=== PATIENT | female | born 1985 | race Caucasian/White ===

== ENCOUNTER 2016-06-27 13:07 | Emergency (ER) | payer OTHER ==
--- NOTE | ~2016-06-27 | CR181 ---
[facility] A Service of [facility] & [facility] RADIOLOGY TEXT RESULTS PATIENT: NAI BAUTISTA LOCATION: SED : 85 UNIT #: [id number] AGE: [address]: Davina Dawson SEX: F ORDER DR: [id number] [address] [address] [id number] E MR#: [id number] Acc #: [id number] NAME: NAI BAUTISTA : 1985 SEX: F STUDY DATE/TIME: 06/27/2016 13:49 UNIT: SED ROOM: STUDY DESCRIPTION: CR Lumbar Spine 2 or 3 Views Attending Physician: Davina Dawson Pa-C Ordering Physician: Davina Dawson Pa-C Primary Care Physician: Nia Singh M.D. MEDICAL IMAGING REPORT This report is preliminary unless electronic signature is present. EXAM Lumbar spine series HISTORY Low back pain, especially to the right of midline, beginning this morning. TECHNIQUE 3 views of the lumbar spine were obtained. FINDINGS There is an exaggerated lumbar lordosis. Disc space heights are preserved. No pars defects or destructive bone lesions are seen, and no degenerative changes are noted. IMPRESSION Exaggerated lumbar lordosis. Otherwise negative. Dictated by... Geovany Castañeda M.D. THIS IS AN ELECTRONICALLY VERIFIED REPORT Geovany Castañeda M.D. at 06/27/2016 6:17 PM DOMONIQUE/peri TD: 06/27/2016 15:41 JOB #: [id number] MEDICAL IMAGING REPORT Page 1 of 1
[~2016-06-27 13:07] MED LIST: ACYCLOVIR PO; ADVIL200 M2 PO; ALBUTEROL17 GM INH; AMBIEN PO; BENADRYL25 M3 PO; CELEXA PO; DARVOCET-N 1001 TAB PO; DELTASONE20 MG PO; FAMOTIDINE PO; FLEXERIL PO; FLEXERIL10 MG PO; KEFLEX500 MG PO; METROGEL-VAGINA70 GM VG; NO MEDICATIONS; ORUDIS75 M1 DOB; PEN-VEE K PO; PREDNISONE PO; PRENATAL MULTIV1 TA1 PO; SUBOXONE 8 MG-1 EAC1; VICODIN; VOLTAREN75 MG PO
== END 2016-06-27 15:06 | disposition home or self-care (01) ==
LOC: SED 13:07
DX: M54.5 Low back pain (principal); J45.909 Unspecified asthma, uncomplicated; F17.210 Nicotine dependence, cigarettes, uncomplicated
CPT/HCPCS: 72100; 96372; 99283; J1885

== ENCOUNTER → 2016-09-24 | Outpatient (CLI) | payer OTHER ==
--- NOTE | ~2016-09-24 | CR132 ---
[facility] A Service of [facility] & [facility] RADIOLOGY TEXT RESULTS PATIENT: NAI BAUTISTA LOCATION: [facility] : 85 UNIT #: [id number] AGE: [address]: ROBYN JACKSON SEX: F ORDER DR: [id number] [facility] [address] [place], [place] [address] [id number] O MR#: [id number] Acc #: [id number] NAME: NAI BAUTISTA : 1985 SEX: F STUDY DATE/TIME: 09/24/2016 18:03 UNIT: [facility] ROOM: STUDY DESCRIPTION: CR Forearm 2 View Lt Attending Physician: Robyn Jackson Aprn Referring Physician: Robyn Jackson Aprn Ordering Physician: Robyn Jackson Aprn Primary Care Physician: Kerri Smith M.D. MEDICAL IMAGING REPORT This report is preliminary unless electronic signature is present EXAM Left forearm, 09/24/2016, [facility]. HISTORY 30-year-old woman with bilateral forearm and bilateral hand pain. Symptoms x2 years. COMPARISON Right forearm. FINDINGS AP and lateral views of the left forearm demonstrate a normal radius and ulna. Mineralization is normal. Cortex is intact. I see no periosteal response. Soft tissues are normal. IMPRESSION Negative left forearm. Dictated by... Honorio Roy M.D. THIS IS AN ELECTRONICALLY VERIFIED REPORT Honorio Roy M.D. at 09/25/2016 1:54 PM Julio César TD: 09/25/2016 13:19 JOB #: [id number] MEDICAL IMAGING REPORT Page 1 of 1 COPY
--- NOTE | ~2016-09-24 | CR142 ---
[facility] A Service of [facility] & [facility] RADIOLOGY TEXT RESULTS PATIENT: NAI BAUTISTA LOCATION: [facility] : 85 UNIT #: [id number] AGE: [address]: ROBYN JACKSON SEX: F ORDER DR: [id number] [facility] [address] [place], [place] [address] [id number] O MR#: [id number] Acc #: [id number] NAME: NAI BAUTISTA : 1985 SEX: F STUDY DATE/TIME: 09/24/2016 17:57 UNIT: [facility] ROOM: STUDY DESCRIPTION: CR Hand Min 3 Views Rt Attending Physician: Robyn Jackson Aprn Referring Physician: Robyn Jackson Aprn Ordering Physician: Robyn Jackson Aprn Primary Care Physician: Kerri Smith M.D. MEDICAL IMAGING REPORT This report is preliminary unless electronic signature is present EXAM Right hand 09/24/2016 HISTORY Bilateral hand pain and forearm pain 2 years duration. FINDINGS 3 views of the right hand demonstrate normal mineralization with intact cortex. The small joints are preserved. There appears to be some soft tissue swelling involving proximal IP joints. There is an incidental tiny corner based chip fracture involving the lateral base of the proximal phalanx of the index finger. IMPRESSION 1. Mild soft tissue swelling or synovial prominence involving the proximal IP joints. No other small joint abnormality identified. The old tiny chip fracture lateral base proximal phalanx index finger. Negative right hand otherwise. Dictated by... Honorio Roy M.D. THIS IS AN ELECTRONICALLY VERIFIED REPORT Honorio Roy M.D. at 09/25/2016 1:54 PM PERICO/jil TD: 09/25/2016 13:02 JOB #: [id number] MEDICAL IMAGING REPORT Page 1 of 1 COPY
--- NOTE | ~2016-09-24 | CR181 ---
[facility] A Service of [facility] & [facility] RADIOLOGY TEXT RESULTS PATIENT: NAI BAUTISTA LOCATION: [facility] : 85 UNIT #: [id number] AGE: [address]: ROBYN JACKSON SEX: F ORDER DR: [id number] [facility] [address] [place], [place] [address] [id number] O MR#: [id number] Acc #: [id number] NAME: NAI BAUTISTA : 1985 SEX: F STUDY DATE/TIME: 09/24/2016 18:06 UNIT: [facility] ROOM: STUDY DESCRIPTION: CR Lumbar Spine 2 or 3 Views Attending Physician: Robyn Jackson Aprn Referring Physician: Robyn Jackson Aprn Ordering Physician: Robyn Jackson Aprn Primary Care Physician: Kerri Smith M.D. MEDICAL IMAGING REPORT This report is preliminary unless electronic signature is present EXAM Lumbar spine 09/24/2016 [facility] HISTORY 30-year-old woman, neck pain, back pain symptoms x2 years. COMPARISON Lumbar spine images 06/27/2016 FINDINGS AP and lateral lumbar spine views show normal mineralization. Lumbar alignment and curvature are preserved. Vertebral body heights and disc spaces are normal. Posterior elements are intact. IMPRESSION Negative lumbar spine. Dictated by... Honorio Roy M.D. THIS IS AN ELECTRONICALLY VERIFIED REPORT Honorio Roy M.D. at 09/25/2016 3:44 PM VAISHALIB/wang TD: 09/25/2016 14:26 JOB #: [id number] MEDICAL IMAGING REPORT Page 1 of 1 COPY
--- NOTE | ~2016-09-24 | CR141 ---
[facility] A Service of [facility] & [facility] RADIOLOGY TEXT RESULTS PATIENT: NAI BAUTISTA LOCATION: [facility] : 85 UNIT #: [id number] AGE: [address]: ROBYN JACKSON SEX: F ORDER DR: [id number] [facility] [address] [place], [place] [address] [id number] O MR#: [id number] Acc #: [id number] NAME: NAI BAUTISTA : 1985 SEX: F STUDY DATE/TIME: 09/24/2016 18:02 UNIT: [facility] ROOM: STUDY DESCRIPTION: CR Hand Min 3 Views Lt Attending Physician: Robyn Jackson Aprn Referring Physician: Robyn Jackson Aprn Ordering Physician: Robyn Jackson Aprn Primary Care Physician: Kerri Smith M.D. MEDICAL IMAGING REPORT This report is preliminary unless electronic signature is present EXAM Left hand 09/24/2016. [facility] HISTORY Bilateral hand pain, forearm pain 2 years duration. FINDINGS Three views of the left hand demonstrate normal bone structure with intact cortex and normal mineralization. There is some soft tissue swelling involving proximal IP joints greater at the third and fourth digits. Small joints are otherwise preserved. Soft tissues are otherwise normal. IMPRESSION Soft tissue/synovial prominence or swelling involving the proximal IP joints, greatest at the third and fourth digits. Dictated by... Honorio Roy M.D. THIS IS AN ELECTRONICALLY VERIFIED REPORT Honorio Roy M.D. at 09/25/2016 1:54 PM Roberta TD: 09/25/2016 13:00 JOB #: [id number] MEDICAL IMAGING REPORT Page 1 of 1 COPY
--- NOTE | ~2016-09-24 | CR133 ---
[facility] A Service of [facility] & [facility] RADIOLOGY TEXT RESULTS PATIENT: NAI BAUTISTA LOCATION: [facility] : 85 UNIT #: [id number] AGE: [address]: ROBYN JACKSON SEX: F ORDER DR: [id number] [facility] [address] [place], [place] [address] [id number] O MR#: [id number] Acc #: [id number] NAME: NAI BAUTISTA : 1985 SEX: F STUDY DATE/TIME: 09/24/2016 18:00 UNIT: [facility] ROOM: STUDY DESCRIPTION: CR Forearm 2 View Rt Attending Physician: Robyn Jackson Aprn Referring Physician: Robyn Jackson Aprn Ordering Physician: Robyn Jackson Aprn Primary Care Physician: Kerri Smith M.D. MEDICAL IMAGING REPORT This report is preliminary unless electronic signature is present EXAM Right forearm, 09/24/2016, [facility]. HISTORY 30-year-old female with bilateral hands, bilateral forearms pain. Low back pain radiating into neck. Symptoms x2 years. COMPARISON None FINDINGS AP and lateral views of the right forearm demonstrate normal radius and ulna. Cortex is intact throughout. Mineralization is preserved. Soft tissues are normal. IMPRESSION Negative right forearm. Dictated by... Honorio Roy M.D. THIS IS AN ELECTRONICALLY VERIFIED REPORT Honorio Roy M.D. at 09/25/2016 1:54 PM Yeny TD: 09/25/2016 13:00 JOB #: [id number] MEDICAL IMAGING REPORT Page 1 of 1 COPY
[2016-09-24 17:43] LABS: BASOPHIL% 0.2 % (0-2.5); EOSINOPHIL# 0.2 X10e3 (0-0.7); EOSINOPHIL% 2.4 % (0.0-7.0); HEMOGLOBIN 10.4 gm/dL (12.0-16.0); LYMPHOCYTE# 2.6 X10e3 (1.0-3.5); LYMPHOCYTE% 31.6 % (17.0-45.0); MEAN CELL VOLUME 79.5 FL (83-96); MEAN CORPUSCULAR HGB CONC 32.7 g/dL (30-36); MEAN PLATELET VOLUME 9.3 FL (6.5-11.5); MONOCYTE# 0.7 X10e3 (0-1.0); MONOCYTE% 8.5 % (3.0-12.0); NEUTROPHIL# 4.8 X10e3 (1.5-7.1); NEUTROPHIL% 57.3 % (40-75); PLATELET COUNT 238 X10e3 (140-420); RED BLOOD COUNT 4.02 X10e (3.90-5.30); WHITE BLOOD COUNT 8.3 X10e3 (4.0-10.5)
[2016-09-24 17:44] LABS: DIFF IND NO
[2016-09-24 18:14] LABS: ALBUMIN SERUM 3.9 g/dL (3.5-5.0); BILIRUBIN,TOTAL 0.1 mg/dL (0.2-2.0); CALCIUM SERUM 8.7 mg/dL (8.4-10.2); GLOM FILT RATE Estimated 75.6 mL/min (>60); POTASSIUM 3.7 mmol/L (3.5-5.1); PROTEIN TOTAL SERUM 7.4 g/dL (6.0-8.3)
[2016-09-24 19:26] LABS: FOLATE (FOLIC ACID) 8.1 ng/mL (>5.8)
== END | disposition home or self-care (01) ==
LOC: CRAD 17:15
PROVIDERS: Nurse Practitioner
DX: Z13.220 Encounter for screening for lipoid disorders (principal); Z13.29 Encounter for screening for other suspected endocrine disorder; Z13.6 Encounter for screening for cardiovascular disorders; M79.601 Pain in right arm; M79.602 Pain in left arm; M54.5 Low back pain; Z87.81 Personal history of (healed) traumatic fracture
CPT/HCPCS: 36415; 72100; 73090; 73130; 80053; 80061; 82607; 82746; 84443; 85025

== ENCOUNTER → 2016-10-31 | Outpatient (CLI) | payer OTHER ==
--- NOTE | ~2016-10-31 | CR58 ---
[facility] A Service of [facility] & [facility] RADIOLOGY TEXT RESULTS PATIENT: NAI BAUTISTA LOCATION: [facility] : 85 UNIT #: [id number] AGE: [address]: ROBYN JACKSON SEX: F ORDER DR: [id number] [facility] [address] [place], [place] [address] [id number] O MR#: [id number] Acc #: [id number] NAME: NAI BAUTISTA : 1985 SEX: F STUDY DATE/TIME: 10/31/2016 11:43 UNIT: [facility] ROOM: STUDY DESCRIPTION: CR Cervical Spine 2 or 3 Views Attending Physician: Robyn Jackson Aprn Referring Physician: Robyn Jackson Aprn Ordering Physician: Robyn Jackson Aprn Primary Care Physician: Kerri Smith M.D. MEDICAL IMAGING REPORT This report is preliminary unless electronic signature is present EXAM Cervical spine series dated 10/31/2016. COMPARISON None. HISTORY Right-sided neck pain and stiffness for 3 weeks. FINDINGS 3 views of the cervical spine were obtained. There is straightening of normal cervical curvature, likely relating to positioning or muscle spasm. No acute displaced fracture or subluxation is seen. Tiny anterior endplate osteophytes are noted at C5-6 and C6-7. Pre and paravertebral soft tissues do not demonstrate any significant abnormality. Dictated by... Ezequiel Escobar M.D. THIS IS AN ELECTRONICALLY VERIFIED REPORT Ezequiel Escobar M.D. at 11/02/2016 9:14 PM CPR/rnr TD: 11/01/2016 03:08 JOB #: [id number] MEDICAL IMAGING REPORT Page 1 of 1 COPY
== END | disposition home or self-care (01) ==
LOC: CRAD 11:27
DX: M54.2 Cervicalgia (principal)
CPT/HCPCS: 72040